=== PATIENT | male | born 1990 | race African-American/Black ===

== ENCOUNTER 2018-11-20 18:46 | Emergency (ER) | payer MEDICAID ==
--- NOTE | 2018-11-20 19:07 | ED Physician Documentation ---
PD HPI CHEST PAIN - Stated complaint Stated Complaint: INTERMITTENT CHEST PAIN - Chief complaint Chief Complaint: Cardiac - History obtained from History obtained from: Patient - History of Present Illness Timing - onset: Other (For the last 4 months he has had intermittent pressure- like anterior nonradiating chest pain. Feels like it might be due to anxiety. It is not exertional. It is not associated with shortness of breath. It does get worse when he smokes. It also gets worse when he takes a deep breath. He denies recent travel or leg swelling. He has no history of heart problems.) Review of Systems Constitutional: denies: Fever, Chills Cardiac: denies: Palpitations Respiratory: denies: Dyspnea, Cough GI: denies: Abdominal Pain, Nausea PD PAST MEDICAL HISTORY - Past Medical History Past Medical History: No Cardiovascular: None Respiratory: None Neuro: None Endocrine/Autoimmune: None GI: None : None HEENT: None Psych: None Musculoskeletal: None Derm: None - Past Surgical History Past Surgical History: No - Present Medications Home Medications: Ambulatory Orders Medication Instructions Recorded Confirmed No Known Home Medications 11/20/18 11/20/18 - Allergies Allergies/Adverse Reactions: Allergies Allergy/AdvReac Type Severity Reaction Status Date / Time No Known Drug Allergies Allergy Verified 11/20/18 18:53 - Social History Does the pt smoke?: Yes Smoking Status: Current every day smoker Does the pt drink ETOH?: No Does the pt have substance abuse?: Yes Substance Use and Type: Marijuana - Immunizations Immunizations are current?: Yes - POLST Patient has POLST: No PD ED PE NORMAL - Vitals Vital signs reviewed: Yes - General General: Alert and oriented X 3, No acute distress - Neck Neck: Supple, no meningeal sign, No bony TTP - Cardiac Cardiac: RRR, No murmur - Respiratory Respiratory: No respiratory distress, Clear bilaterally - Abdomen Abdomen: Non tender - Derm Derm: No rash - Extremities Extremities: No edema, No calf tenderness / cord - Neuro Neuro: Alert and oriented X 3, Normal speech Results - Vitals Vitals: Vital Signs - 24 hr 11/20/18 18:50 Temperature 36.3 C L Heart Rate 59 L Respiratory 12 Rate Blood Pressure 117/68 O2 Saturation 97 Oxygen O2 Source Room air - EKG (time done) 1854 Rate: Rate (enter#) (61) Rhythm: NSR Lennon: Normal Intervals: Normal CT QRS: Normal Ischemia: ST elevation c/w repol (mild) Computer interpretation: Disagree with computer (reads afib) - Labs Labs: Laboratory Tests 11/20/18 19:12 Troponin I < 0.04 - Rads (name of study) 2v chest Radiology: EMP read contemporaneously (Normal) PD MEDICAL DECISION MAKING - ED course ED course: Haert score 1 Departure - Departure Disposition: 01 Home, Self Care Clinical Impression: Chest pain Qualifiers: Chest pain type: precordial pain Qualified Code(s): R07.2 - Precordial pain Condition: Good Record reviewed to determine appropriate education?: Yes Instructions: ED Chest Pain Atypical Unkn Cause Comments: Call your doctor to arrange a follow-up appointment, make the next available appointment. In the interim, return anytime if worse or if new symptoms develop.
--- NOTE | 2018-11-20 20:16 | XRAY Report ---
Reason: chest pain Procedure Date: 11/20/2018 Accession Number: [id number] / [id number] Procedure: XR - Chest 2 View X-Ray CPT Code: 17818 FULL RESULT: EXAM: CHEST RADIOGRAPHY EXAM DATE: 11/20/2018 08:01 PM. CLINICAL HISTORY: Chest pain. The midline chest pain for 4 days. History of smoking that makes pain worse. COMPARISON: None. TECHNIQUE: 2 views. FINDINGS: Lungs/Pleura: No focal opacities evident. No pleural effusion. No pneumothorax. Normal volumes. Mediastinum: Heart and mediastinal contours are unremarkable. Other: None. IMPRESSION: Normal 2-view chest radiography. RADIA
[2018-11-20 21:01] VITALS: BP 122/59
== END 2018-11-20 20:55 | disposition home or self-care (01) ==
LOC: ED 18:46
DX: R07.2 Precordial pain (principal); F17.200 Nicotine dependence, unspecified, uncomplicated; R94.31 Abnormal electrocardiogram [ECG] [EKG]
CPT/HCPCS: 36415; 71046; 84484; 93005; 99283

== ENCOUNTER 2018-11-30 15:46 | Emergency (ER) | payer MEDICAID ==
--- NOTE | 2018-11-30 16:32 | ED Physician Documentation ---
PD HPI CHEST PAIN - Stated complaint Stated Complaint: CP - Chief complaint Chief Complaint: General - History obtained from History obtained from: Patient - History of Present Illness Timing - onset: How many weeks ago (few) Timing - onset during: Light activity Timing - duration: Weeks (few) Timing - details: Gradual onset, Still present, Waxing and waning Quality: Aching, Sharp, Pain Location: Substernal, Right chest (lower sternal area) Radiation: No: Jaw, Neck, Back Improved by: Rest Worsened by: Inspiration, Movement, Other (smoking). No: Palpation Associated symptoms: Cough. No: Shortness of air, Nausea, Feeling faint / dizzy Similar symptoms before: Has not had sx before Recently seen: Emergency Dept (couple weeks ago and had CXR, ECG, troponin that were normal. Told to use NSAIDs and that cough/pain should improve in a week or so. No Rx given. He says symptoms have persisted, including the cough.) Review of Systems Constitutional: denies: Fever, Myalgias Nose: denies: Rhinorrhea / runny nose, Congestion Throat: denies: Sore throat Cardiac: reports: Chest pain / pressure (with cough and deep breathing). denies: Palpitations, Pedal edema, Calf pain Respiratory: reports: Cough. denies: Dyspnea, Wheezing GI: denies: Abdominal Pain, Nausea, Vomiting Skin: denies: Rash, Lesions Musculoskeletal: denies: Neck pain, Back pain Neurologic: denies: Near syncope, Syncope PD PAST MEDICAL HISTORY - Past Medical History Cardiovascular: None Respiratory: None Neuro: None Endocrine/Autoimmune: None GI: None : None HEENT: None Psych: None Musculoskeletal: None Derm: None - Past Surgical History Past Surgical History: No - Present Medications Home Medications: Ambulatory Orders Medication Instructions Recorded Confirmed Dexamethasone [Decadron] 4 mg PO DAILY #5 tablet 11/30/18 Naproxen 500 mg PO BID #20 tablet 11/30/18 Tramadol HCl 50 mg PO Q6H PRN #15 tablet 11/30/18 - Allergies Allergies/Adverse Reactions: Allergies Allergy/AdvReac Type Severity Reaction Status Date / Time No Known Drug Allergies Allergy Verified 11/30/18 15:58 - Social History Does the pt smoke?: Yes Smoking Status: Current every day smoker Does the pt drink ETOH?: No Does the pt have substance abuse?: Yes Substance Use and Type: Marijuana - Immunizations Immunizations are current?: Yes - POLST Patient has POLST: No PD ED PE NORMAL - Vitals Vital signs reviewed: Yes - General General: Alert and oriented X 3, No acute distress, Well developed/nourished - HEENT HEENT: Ears normal, Moist mucous membranes, Pharynx benign - Neck Neck: Supple, no meningeal sign, No adenopathy - Cardiac Cardiac: RRR, No murmur, No rub - Respiratory Respiratory: Clear bilaterally, Other (chestwall is tender at right lower parasternal area. Creates similar pain to deep breathing. ) - Abdomen Abdomen: Soft, Non tender - Back Back: No CVA TTP - Derm Derm: Normal color, Warm and dry - Extremities Extremities: No tenderness to palpate, Normal ROM s pain, No edema, No calf tenderness / cord Results - Vitals Vitals: Vital Signs - 24 hr 11/30/18 11/30/18 15:50 17:09 Temperature 36.8 C Heart Rate 86 75 Respiratory 18 24 Rate Blood Pressure 116/75 122/81 H O2 Saturation 99 97 Oxygen O2 Source Room air - EKG (time done) 15:58 Rate: Rate (enter#) (65) Rhythm: NSR Vanduser: Normal Intervals: Normal GA QRS: Normal Ischemia: Normal ST segments, ST elevation c/w repol. No: ST elevation c/w ischemia, ST depression Compare to prior EKG: Unchanged from prior EKG PD MEDICAL DECISION MAKING - ED course Complexity details: reviewed old records, reviewed results, considered differential (likely inflammatory, such as pleurisy, costchondritis. Seems less likely pericarditis. Discussed with him and shared decision to not repeat CXR nor blood tests. ), d/w patient Departure - Departure Disposition: 01 Home, Self Care Clinical Impression: Pleuritic chest pain Condition: Stable Record reviewed to determine appropriate education?: Yes Instructions: ED Chest Pain Costochondritis Follow-Up: [facility] [Provider Group] Prescriptions: Dexamethasone [Decadron] 4 mg PO DAILY #5 tablet Naproxen 500 mg PO BID #20 tablet Tramadol HCl 50 mg PO Q6H PRN #15 tablet PRN Reason: Pain Comments: I think this is likely to be some inflammation in the cartilage of the chest wall or possibly around the lung. There is the potential for some inflammation around the heart called pericarditis but your EKG appears normal and would make that less likely. All of these problems are similar and that there based on some inflammation and often after a viral infection. We would treated with anti-inflammatories regularly for the next 7 to 10 days (with the steroid additional anti-inflammatory for the first 5 days). Add Tylenol or tramadol if needed for pains. Recheck if not better over the next week. Discharge Date/Time: 11/30/18 17:11
[2018-11-30] MEDS ORDERED: CHERRY SYRUP 10 ML UDC PO ONE (17:01)
[2018-11-30] MEDS ORDERED: DEXAMETHASONE 10 MG/ML VIAL PO STA (17:01)
[2018-11-30] MEDS ORDERED: ACETAMINOPHEN 325 MG TABLET PO STA (17:01)
[2018-11-30] MEDS ORDERED: NAPROXEN 250 MG TABLET PO STA (17:01)
[2018-11-30 17:09] VITALS: BP 122/81
== END 2018-11-30 17:11 | disposition home or self-care (01) ==
LOC: ED 15:46
DX: R07.81 Pleurodynia (principal); F17.200 Nicotine dependence, unspecified, uncomplicated
CPT/HCPCS: 93005; 99283; A9270

== ENCOUNTER 2018-12-21 15:44 | Emergency (ER) | payer MEDICAID ==
[2018-12-21 16:10] LABS: BASOPHILS % (AUTO) 0.5 %; EOSINOPHILS # (AUTO) 0.3 10^3/uL (0.0-0.7); EOSINOPHILS % (AUTO) 4.4 %; HGB - HEMOGLOBIN 13.6 g/dL (14.0-18.0); LYMPHOCYTES # (AUTO) 1.1 10^3/uL (1.5-3.5); LYMPHOCYTES % (AUTO) 14.7 %; MEAN CORPUSCULAR HEMOGLOBIN 29.3 pg (27.0-31.0); MEAN CORPUSCULAR HGB CONC 33.4 g/dL (32.0-36.0); MEAN CORPUSCULAR VOLUME 87.7 fL (80.0-94.0); MEAN PLATELET VOLUME 7.9 fL (7.4-11.4); MONOCYTES # (AUTO) 0.7 10^3/uL (0.0-1.0); MONOCYTES % (AUTO) 9.7 %; NEUTROPHILS # (AUTO) 5.3 10^3/uL (1.5-6.6); NEUTROPHILS % (AUTO) 70.7 %; PLT - PLATELET COUNT 200 10^3/uL (130-450); RED BLOOD COUNT 4.64 10^6/uL (4.70-6.10); RED CELL DISTRIBUTION WIDTH 13.7 % (12.0-15.0); WHITE BLOOD COUNT 7.6 x10^3/uL (4.8-10.8)
[2018-12-21 16:17] LABS: BILIRUBIN,URINE NEGATIVE (NEGATIVE); GLUCOSE, URINE (UA) NEGATIVE (NEGATIVE); KETONES,URINE (UA) NEGATIVE (NEGATIVE); LEUKOCYTE ESTERASE, URINE NEGATIVE (NEGATIVE); NITRITE,URINE NEGATIVE (NEGATIVE); OCCULT BLOOD,URINE NEGATIVE (NEGATIVE); PROTEIN,URINE NEGATIVE (NEGATIVE); UROBILINOGEN,URINE 4 E.U./dL (NORMAL)
[2018-12-21 16:20] LABS: ALBUMIN 4.2 g/dL (3.2-5.5); ALBUMIN/GLOBULIN RATIO 1.8 (1.0-2.2); BILIRUBIN,TOTAL 1.3 mg/dL (0.2-1.0); TOTAL PROTEIN 6.6 g/dL (6.7-8.2)
[2018-12-21 16:35] LABS: CLARITY,URINE CLEAR (CLEAR)
--- NOTE | 2018-12-21 18:09 | ED Physician Documentation ---
PD HPI HEENT - Stated complaint Stated Complaint: THROAT PX - Chief complaint Chief Complaint: Abd Pain - History obtained from History obtained from: Patient - History of Present Illness Timing - onset: Today (noted blood when wiped after having BM.), How many days ago (few days of sore throat.) Timing - details: Gradual onset Location: Throat (sore throat for few days) Worsens: Swalllowing Associated symptoms: No: Fever, Congestion, Swollen nodes, Facial swelling Similar symptoms before: Diagnosis (pharyngitis) Recently seen: Emergency Dept (few weeks ago for sore throat and give steroid and NSAIDs and abx. Improved and feeling pain again.) Review of Systems Constitutional: denies: Fever, Myalgias Nose: denies: Rhinorrhea / runny nose, Congestion Throat: reports: Sore throat. denies: Oral lesions / sores, Swollen tonsils Cardiac: denies: Chest pain / pressure Respiratory: denies: Cough GI: reports: Hematemesis (noted red blood when wiping after stool BM today.). denies: Nausea, Vomiting, Constipation (but firm stool) Skin: denies: Rash Musculoskeletal: denies: Joint pain PD PAST MEDICAL HISTORY - Past Medical History Cardiovascular: None Respiratory: None Neuro: None Endocrine/Autoimmune: None GI: None : None HEENT: None Psych: None Musculoskeletal: None Derm: None - Past Surgical History Past Surgical History: No - Present Medications Home Medications: Ambulatory Orders Medication Instructions Recorded Confirmed Naproxen 500 mg PO BID #20 tablet 11/30/18 Tramadol HCl 50 mg PO Q6H PRN #15 tablet 11/30/18 dexAMETHasone [Decadron] 4 mg PO DAILY #5 tablet 11/30/18 Hydrocortisone Acetate [Anucort-Hc] 25 mg RC DAILY #5 supp.rect 12/21/18 Lidocaine Viscous 2% [Xylocaine 5 ml PO Q4H PRN #100 ml 12/21/18 Viscous 2%] Tramadol HCl 50 mg PO Q6H PRN #15 tablet 12/21/18 - Allergies Allergies/Adverse Reactions: Allergies Allergy/AdvReac Type Severity Reaction Status Date / Time No Known Drug Allergies Allergy Verified 12/21/18 15:53 - Social History Does the pt smoke?: Yes Smoking Status: Current every day smoker Does the pt drink ETOH?: No Does the pt have substance abuse?: Yes - Immunizations Immunizations are current?: Yes - POLST Patient has POLST: No PD ED PE NORMAL - Vitals Vital signs reviewed: Yes - General General: Alert and oriented X 3, No acute distress, Well developed/nourished - HEENT HEENT: Ears normal, Moist mucous membranes, Pharynx benign - Neck Neck: Supple, no meningeal sign, No adenopathy - Cardiac Cardiac: RRR, No murmur - Respiratory Respiratory: Clear bilaterally - Male 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 internal limited exam but I flet a small int ernal hemorrhoid and there was some red blood in rectum.) Results - Vitals Vitals: Oxygen O2 Source Room air - Labs Labs: Microbiology 12/21/18 15:54 Group A Strep Throat Culture - Final Throat Beta Hemolytic Strep Group G Laboratory Tests 12/21/18 12/21/18 12/21/18 15:54 16:00 16:04 WBC 7.6 RBC 4.64 L Hgb 13.6 L Hct 40.7 L MCV 87.7 MCH 29.3 MCHC 33.4 RDW 13.7 Plt Count 200 MPV 7.9 Neut # (Auto) 5.3 Lymph # (Auto) 1.1 L Gaines # (Auto) 0.7 Eos # (Auto) 0.3 Baso # (Auto) 0.0 Absolute Nucleated RBC 0.00 Nucleated RBC % 0.0 Sodium Potassium Chloride Carbon Dioxide Anion Gap BUN Creatinine Estimated GFR (MDRD) Glucose Calcium Total Bilirubin AST ALT Alkaline Phosphatase Total Protein Albumin Globulin Albumin/Globulin Ratio Lipase Urine Color YELLOW Urine Clarity CLEAR Urine pH 8.0 H Ur Specific [place] 1.010 Urine Protein NEGATIVE Urine Glucose (UA) NEGATIVE Urine Ketones NEGATIVE Urine Occult Blood NEGATIVE Urine Nitrite NEGATIVE Urine Bilirubin NEGATIVE Urine Urobilinogen 4 H Ur Leukocyte Esterase NEGATIVE Ur Microscopic Review NOT INDICATED Urine Culture Comments NOT INDICATED Group A Strep Rapid Negative 12/21/18 16:04 WBC RBC Hgb Hct MCV MCH MCHC RDW Plt Count MPV Neut # (Auto) Lymph # (Auto) Gaines # (Auto) Eos # (Auto) Baso # (Auto) Absolute Nucleated RBC Nucleated RBC % Sodium 138 Potassium 3.9 Chloride 104 Carbon Dioxide 27 Anion Gap 7.0 BUN 11 Creatinine 1.0 Estimated GFR (MDRD) 109 Glucose 93 Calcium 9.0 Total Bilirubin 1.3 H AST 37 ALT 25 Alkaline Phosphatase 52 Total Protein 6.6 L Albumin 4.2 Globulin 2.4 Albumin/Globulin Ratio 1.8 Lipase 29 Urine Color Urine Clarity Urine pH Ur Specific [place] Urine Protein Urine Glucose (UA) Urine Ketones Urine Occult Blood Urine Nitrite Urine Bilirubin Urine Urobilinogen Ur Leukocyte Esterase Ur Microscopic Review Urine Culture Comments Group A Strep Rapid PD MEDICAL DECISION MAKING - ED course Complexity details: considered differential (he was quite reluctant on the rectal exam. Only got limited exam just at anal verge, but I felt a small internal hemorrhoid and there was some red blood. ), d/w patient Departure - Departure Disposition: Home, Self Care Clinical Impression: Bloody stools Pharyngitis, acute Qualifiers: Pharyngitis/tonsillitis etiology: unspecified etiology Qualified Code(s): J02.9 - Acute pharyngitis, unspecified Condition: Stable Record reviewed to determine appropriate education?: Yes Instructions: ED Hematochezia Stable, ED Pharyngitis Viral Prescriptions: Hydrocortisone Acetate [Anucort-Hc] 25 mg RC DAILY #5 supp.rect Lidocaine Viscous 2% [Xylocaine Viscous 2%] 5 ml PO Q4H PRN #100 ml PRN Reason: Pain Tramadol HCl 50 mg PO Q6H PRN #15 tablet PRN Reason: Pain Comments: Your throat pain may be from allergy or viral illness. It does not look to be from strep or mono. Treated with some lidocaine and you can mix that with some diphenhydramine to help soothe the throat. Use Tylenol or tramadol as needed for pain. Given the blood with your stool per rectum, I would decrease her not use aspirin for your throat pain. The bleeding is likely from an internal hemorrhoid. See if it clears itself over the next day or 2. If it persists, you could use the anti-inflammatory suppository daily for several days. Recheck if not improved over a week. Discharge Date/Time: 12/21/18 19:35
[2018-12-21] MEDS ORDERED: diphenhydrAMINE ELIXIR 25 MG/10 ML UDC PO STA (18:40)
[2018-12-21] MEDS ORDERED: LIDOCAINE VISCOUS 2% 15 ML UDC MM STA (18:40)
[2018-12-21] MEDS ORDERED: traMADol 50 MG TABLET PO STA (18:40)
[2018-12-21 19:13] VITALS: BP 114/71
== END 2018-12-21 19:35 | disposition home or self-care (01) ==
LOC: ED 15:44
DX: K92.1 Melena (principal); K64.8 Other hemorrhoids; J02.9 Acute pharyngitis, unspecified; F17.200 Nicotine dependence, unspecified, uncomplicated
CPT/HCPCS: 36415; 80053; 81003; 83690; 85025; 87070; 87077; 87430; 99283; A9270; 81001; 87086